=== PATIENT | female | born 1970 ===

== ENCOUNTER 2023-07-05 05:55 | Day surgery (SDC) | payer OTHER ==
[~2023-07-05] VITALS: Ht 165.1 cm; Wt 69.4 kg
[~2023-07-05 05:55] MED LIST: ATACAND4 MG PO; CALTRATE GUMMY1 EACH PO; CARAFATE1 GM PO; CENTRUM ADULTS1 EACH PO; CRESTOR10 MG PO; PEPCID40 MG PO; PLAVIX75 MG PO; ZETIA10 MG PO
== END 2023-07-05 16:00 | disposition home or self-care (01) ==
LOC: CIR.AMB 05:55
PROVIDERS: ATTEND Orthopaedic Surgery Hand Surgery
DX: D48.1 Neoplasm of uncertain behavior of connective and other soft tissue (principal); R22.31 Localized swelling, mass and lump, right upper limb; Z20.822 Contact with and (suspected) exposure to COVID-19; Z88.0 Allergy status to penicillin; Z88.6 Allergy status to analgesic agent